=== PATIENT | female | born 1985 | race Caucasian/White ===

== ENCOUNTER 2025-02-16 09:25 | Inpatient (IN) | payer OTHER ==
[~2025-02-16] VITALS: Ht 180.3 cm; Wt 138.6 kg
[2025-02-16] MEDS ORDERED: 0.9% SODIUM CHLORIDE 10 ML SYRINGE IVP PRN (11:00)
[2025-02-16 11:16] LABS: PLATELET COUNT (AUTO) 336 K/uL (150-450); RED BLOOD CELL COUNT(AUTO) 4.11 MIL/uL (4.00-5.20); RED CELL DISTRIBUTION WIDTH 16.2 % (11.5-14.5); WHITE BLOOD COUNT (AUTO) 5.4 K/uL (4.5-11.0)
[2025-02-16 11:25] LABS: CALCIUM, TOTAL 8.9 mg/dL (8.8-10.5); CREATININE 0.58 mg/dL (0.60-1.30); GLOMERULAR FILTR. RATE CALC > 60 mL/min (>60); GLUCOSE,RANDOM 111 mg/dL (70-110); SODIUM SERUM 140 mmol/L (136-145); UREA NITROGEN, BLOOD 15 mg/dL (7-18)
[2025-02-16 11:33] LABS: LACTIC ACID 1.1 mmol/L (0.4-2.0)
[2025-02-16 11:35] LABS: TROPONIN I-HIGH SENSITIVITY 10 ng/L (<51)
[2025-02-16] MEDS: SODIUM CHLORIDE 0.9% 250 ML IV ONE (11:35)
[2025-02-16] MEDS: FUROSEMIDE 40 MG/4 ML VIAL IVP ONE (11:35)
[2025-02-16] MEDS: CefTRIAXone 1 GM/DEXTROSE 50 ML IV ONE (11:36)
[2025-02-16 11:54] LABS: ASPARTATE AMINOTRANSFERASE 34.0 U/L (15-37); TOTAL PROTEIN, SERUM 7.8 g/dL (6.4-8.2)
[2025-02-16 12:36] LABS: APPEARANCE,URINE CLEAR (CLEAR); GLUCOSE, URINE (UA) NEGATIVE (NEGATIVE); LEUKOCYTE ESTERASE ,URINE NEGATIVE (NEGATIVE); NITRATE,URINE NEGATIVE (NEGATIVE); OCCULT BLOOD,URINE SMALL (NEGATIVE); SPECIFIC GRAVITIY, URINE 1.017 (1.003-1.030)
[2025-02-16 12:42] LABS: SQUAMOUS EPITHELIAL CELL,UR Rare /LPF (None Seen)
[2025-02-16] MEDS ORDERED: ONDANSETRON HCL 4 MG/2 ML VIAL IVP PRN (14:30)
[2025-02-16] MEDS ORDERED: BISACODYL 10 MG RECTAL RECTAL SUPPOSITORY PR PRN (14:30)
[2025-02-16] MEDS ORDERED: MORPHINE SULFATE 4 MG/ML SYRINGE IVP PRN (14:30)
[2025-02-16] MEDS ORDERED: ZOLPIDEM TARTRATE 5 MG TABLET PO PRN (14:30)
[2025-02-16] MEDS ORDERED: MAGNESIUM HYDROXIDE SUSPENSION 30 ML UDCUP PO PRN (14:30)
[2025-02-16] MEDS ORDERED: HYDROCODONE/ACETAMINOPHEN 5-325 MG TABLET PO PRN (14:30)
[2025-02-16 15:22] VITALS: BP 139/86; PULSE 92; RESP 20; TEMP 98.8; O2SAT 95
[2025-02-16] MEDS: HEPARIN SODIUM,PORCINE 5,000 UNITS/ML VIAL SQ SCH (16:17)
[2025-02-16] MEDS: VANCOMYCIN HCL 1.5 GM in DEXTROSE 5%-WATER 250 ML IV ONE (16:29)
[2025-02-16] MEDS ORDERED: ALBU18HF12 IH (19:28)
[2025-02-16 20:20] VITALS: BP 103/62; PULSE 87; RESP 18; TEMP 98.2; O2SAT 100
[2025-02-16] MEDS: DOCUSATE SODIUM 100 MG CAPSULE PO SCH (21:06)
[2025-02-16] MEDS: VANCOMYCIN HCL 1.5 GM in DEXTROSE 5%-WATER 250 ML IV SCH (23:23)
[2025-02-17 04:04] VITALS: BP 117/54; PULSE 81; RESP 18; TEMP 98; O2SAT 97
[2025-02-17 07:00] LABS: PLATELET COUNT (AUTO) 288 K/uL (150-450); RED BLOOD CELL COUNT(AUTO) 4.05 MIL/uL (4.00-5.20); RED CELL DISTRIBUTION WIDTH 16.4 % (11.5-14.5); WHITE BLOOD COUNT (AUTO) 5.3 K/uL (4.5-11.0)
[2025-02-17 07:08] LABS: CALCIUM, TOTAL 8.3 mg/dL (8.8-10.5); CREATININE 0.53 mg/dL (0.60-1.30); GLOMERULAR FILTR. RATE CALC > 60 mL/min (>60); GLUCOSE,RANDOM 96 mg/dL (70-110); SODIUM SERUM 137 mmol/L (136-145); UREA NITROGEN, BLOOD 13 mg/dL (7-18)
[2025-02-17] MEDS: PANTOPRAZOLE SODIUM 40 MG DR TABLET PO SCH (07:47)
[2025-02-17 08:46] VITALS: BP 116/53; PULSE 83; RESP 18; TEMP 99; O2SAT 96
[2025-02-17] MEDS: FUROSEMIDE 20 MG/2 ML VIAL IVP SCH (09:09)
[2025-02-17 16:31] VITALS: BP 127/59; PULSE 77; RESP 17; TEMP 98.4; O2SAT 100
[2025-02-17] MEDS: SULFAMETHOX/TRIMETH DS 800-160 MG/TABLET PO SCH (20:42)
[2025-02-17 20:44] VITALS: BP 104/53; PULSE 81; RESP 17; TEMP 98.1; O2SAT 97
[2025-02-18 05:09] VITALS: BP 130/62; PULSE 78; RESP 20; TEMP 98.1; O2SAT 95
[2025-02-18 08:30] VITALS: BP 134/72; PULSE 76; RESP 18; TEMP 98.4; O2SAT 99
[2025-02-18 10:04] LABS: PLATELET COUNT (AUTO) 306 K/uL (150-450); RED BLOOD CELL COUNT(AUTO) 4.01 MIL/uL (4.00-5.20); RED CELL DISTRIBUTION WIDTH 15.7 % (11.5-14.5); WHITE BLOOD COUNT (AUTO) 5.2 K/uL (4.5-11.0)
[2025-02-18 10:11] LABS: CALCIUM, TOTAL 8.4 mg/dL (8.8-10.5); CREATININE 0.69 mg/dL (0.60-1.30); GLOMERULAR FILTR. RATE CALC > 60 mL/min (>60); GLUCOSE,RANDOM 115 mg/dL (70-110); SODIUM SERUM 137 mmol/L (136-145); UREA NITROGEN, BLOOD 12 mg/dL (7-18)
[2025-02-18 19:11] VITALS: BP 137/64; PULSE 82; RESP 18; TEMP 98.3; O2SAT 97
[2025-02-18 20:00] VITALS: BP 101/50; PULSE 80; RESP 18; TEMP 98.4; O2SAT 96
[2025-02-19 04:00] VITALS: BP 128/56; PULSE 80; RESP 18; TEMP 98.1; O2SAT 96
[2025-02-19 07:48] LABS: PLATELET COUNT (AUTO) 327 K/uL (150-450); RED BLOOD CELL COUNT(AUTO) 4.08 MIL/uL (4.00-5.20); RED CELL DISTRIBUTION WIDTH 15.5 % (11.5-14.5); WHITE BLOOD COUNT (AUTO) 5.1 K/uL (4.5-11.0)
[2025-02-19 08:12] LABS: CALCIUM, TOTAL 8.7 mg/dL (8.8-10.5); CREATININE 0.71 mg/dL (0.60-1.30); GLOMERULAR FILTR. RATE CALC > 60 mL/min (>60); GLUCOSE,RANDOM 80 mg/dL (70-110); SODIUM SERUM 140 mmol/L (136-145); UREA NITROGEN, BLOOD 12 mg/dL (7-18)
[2025-02-19 08:47] VITALS: BP 144/54; PULSE 80; RESP 18; TEMP 98; O2SAT 97
[2025-02-19] MEDS: VANCOMYCIN HCL 1.25 GM in DEXTROSE 5%-WATER 250 ML IV SCH (16:35)
[2025-02-19 17:30] VITALS: BP 136/72; PULSE 61; RESP 19; TEMP 98.6; O2SAT 98
[2025-02-19 20:30] VITALS: BP 143/69; PULSE 75; RESP 18; TEMP 98.6; O2SAT 97
[2025-02-20 05:53] VITALS: BP 132/57; PULSE 73; RESP 18; TEMP 98.4; O2SAT 20
[2025-02-20 07:13] VITALS: BP 129/50; PULSE 70; RESP 20; TEMP 98.1; O2SAT 98
[2025-02-20 08:01] LABS: CALCIUM, TOTAL 8.7 mg/dL (8.8-10.5); CREATININE 0.71 mg/dL (0.60-1.30); GLOMERULAR FILTR. RATE CALC > 60 mL/min (>60); GLUCOSE,RANDOM 89 mg/dL (70-110); SODIUM SERUM 138 mmol/L (136-145); UREA NITROGEN, BLOOD 11 mg/dL (7-18)
[2025-02-20 20:00] VITALS: BP 135/64; PULSE 74; RESP 18; TEMP 98.6; O2SAT 97
[2025-02-20] MEDS: ACETAMINOPHEN 325 MG TABLET PO PRN (20:27)
[2025-02-21 04:00] VITALS: BP 137/73; PULSE 71; RESP 18; TEMP 98.1; O2SAT 97
[2025-02-21 08:00] VITALS: BP 135/70; PULSE 72; RESP 18; TEMP 98.2; O2SAT 95
[2025-02-21 09:25] LABS: CALCIUM, TOTAL 8.9 mg/dL (8.8-10.5); CREATININE 0.69 mg/dL (0.60-1.30); GLOMERULAR FILTR. RATE CALC > 60 mL/min (>60); GLUCOSE,RANDOM 115 mg/dL (70-110); SODIUM SERUM 138 mmol/L (136-145); UREA NITROGEN, BLOOD 11 mg/dL (7-18)
[2025-02-21] MEDS ORDERED: SULF1TAB94 PO (10:26)
[2025-02-21] MEDS ORDERED: ACET-2247 PO (10:29)
[2025-02-21] MEDS ORDERED: MAGN-169 PO (10:30)
[2025-02-21] MEDS ORDERED: SULFAMETHOX/TRIMETH DS 800-160 MG/TABLET PO SCH (21:00)
== END 2025-02-21 14:10 | DRG 603 ==
LOC: EMS 09:25 → EDH 12:01 → 4S 15:15
PROVIDERS: ADMIT Internal Medicine; ATTEND Internal Medicine
PROC: 05HC33Z Insertion of Infusion Device into Left Basilic Vein, Percutaneous Approach (ICD-10-PCS; principal; 2025-02-17)
DX: L03.311 Cellulitis of abdominal wall (principal); E44.0 Moderate protein-calorie malnutrition; R78.81 Bacteremia; L03.115 Cellulitis of right lower limb; L03.116 Cellulitis of left lower limb; D64.9 Anemia, unspecified; I10 Essential (primary) hypertension; E66.01 Morbid (severe) obesity due to excess calories; J45.909 Unspecified asthma, uncomplicated; Z68.41 Body mass index [BMI] 40.0-44.9, adult; F17.200 Nicotine dependence, unspecified, uncomplicated
CPT/HCPCS: 36245; 36569; 71045; 76937; 80048; 80076; 80202; 81001; 83605; 83690; 83880; 84145; 84484; 84703; 85025; 85379; 85610; 87040; 87205; 93005; 93306; 93970; 96365; 96375; 99285; G0378; J0696; J1644; J1938; J7030; J7060; 36415-L1; 36415-TC